=== PATIENT | female | born 1950 | race Caucasian/White ===

== ENCOUNTER → 2024-11-02 | Outpatient (CLI) | payer MEDICARE, SELFPAY ==
--- NOTE | 2024-11-02 13:00 | XR_ITS ---
Examination: Screening digital mammography, unilateral left Computer aided detection 3-D breast Tomosynthesis, unilateral Date and time of exam: November 22, 2024 1251 hours Compared to mammograms dating to January 03, 2021 Indication: Screening, personal history right breast cancer right mastectomy, family history, sister breast cancer Technique: Nonmagnified MLO, CC views of the LEFT breast to been obtained, reconstructed from 3-D Tomosynthesis images. R2 computer aided detection program utilized for evaluation of suspicious masses and/or abnormal calcifications. 3-D Tomosynthesis images obtained. Findings: Scattered areas of fibroglandular density Breast biopsy markers upper outer left breast No definite change in nodules in the outer left breast on the CC view Impression: BI-RADS Category 0: Incomplete: Need additional imaging evaluation Recommend left breast sonography follow-up
== END | disposition home or self-care (01) ==
PROVIDERS: PCP Internal Medicine; Referring Provider Internal Medicine; Visit Provider Internal Medicine
DX: Z12.31 Encounter for screening mammogram for malignant neoplasm of breast (principal); R92.8 Other abnormal and inconclusive findings on diagnostic imaging of breast
CPT/HCPCS: 77063; 77067

== ENCOUNTER → 2024-11-23 | Outpatient (CLI) | payer MEDICARE, SELFPAY ==
--- NOTE | 2024-11-23 14:45 | XR_ITS ---
Examination: Breast ultrasound, unilateral, left complete Date and time of exam: November 23, 2024 1449 hours INDICATIONS: Mammogram November 02, 2024 retroareolar focal asymmetry Technique: Real-time earl scale ultrasonographic imaging performed left breast including all 4 quadrants as well as nipple retroareolar and axillary region. Findings: 1:00 oval nodule lobular margins 5 x 6 mm 3:00 cyst 5 x 5 mm 3:00 nodule circumscribed 5 x 4 mm IMPRESSION: BI-RADS Category 2: Benign findings
== END | disposition home or self-care (01) ==
PROVIDERS: PCP Internal Medicine; Referring Provider Internal Medicine; Visit Provider Internal Medicine
DX: R92.8 Other abnormal and inconclusive findings on diagnostic imaging of breast (principal)
CPT/HCPCS: 76641